=== PATIENT | male | born 1995 | race Caucasian/White ===

== ENCOUNTER 2019-05-22 08:57 | Emergency (ER) | payer MEDICAID ==
[~2019-05-22] VITALS: Ht 172.7 cm; Wt 98.9 kg
[2019-05-22 09:13] VITALS: BP_SYST 158
--- NOTE | 2019-05-22 09:20 | NUR ---
Patient to ER bed 4 to gown for evaluation. Side rails up. Report given to Rashad GOMEZ.
--- NOTE | 2019-05-22 09:25 | NUR ---
Patient came to ER due to left calf pain. Per patient he was stretching and felt sharp pain 7/10 when walking. When idle and non ambulating pain is reduced to 3/10. Patient is not presenting any signs of acute distress and sitting at bedside.
--- NOTE | 2019-05-22 10:30 | NUR ---
Patient transported to radiology via wheelchair, accompanied by rikki.
--- NOTE | 2019-05-22 10:40 | NUR ---
ER at bedside examining patient.
[2019-05-22 10:42] LABS: BILIRUBIN,URINE NEGATIVE (NEGATIVE); BLOOD, URINE NEGATIVE (NEGATIVE); CLARITY/URINE CLEAR (CLEAR); COLOR,URINE YELLOW (YELLOW); GLUCOSE,URINE NEGATIVE (NEGATIVE); KETONES,URINE NEGATIVE (NEGATIVE); LEUKOCYTE ESTERASE ,URINE NEGATIVE (NEGATIVE); NITRITE, URINE NEGATIVE (NEGATIVE); PROTEIN URINE NEGATIVE (NEGATIVE)
[2019-05-22 11:28] LABS: BASOPHILS % (AUTO) 0.7 % (0.0-2.0); CREATININE 0.81 mg/dL (0.55-1.30); EOSINOPHILS # (AUTO) 0.1 K/uL (0.0-0.4); EOSINOPHILS % (AUTO) 1.5 % (0.0-4.0); HEMATOCRIT 46.2 % (36-54); HEMOGLOBIN 15.6 g/dL (14.0-18.0); LYMPHOCYTES # (AUTO) 1.1 K/uL (1.0-5.5); LYMPHOCYTES % (AUTO) 20.4 % (20.5-51.5); MEAN CORPUSCULAR HEMOGLOBIN 30 pg (27-31); MEAN CORPUSCULAR HGB CONC 34 % (32-36); MEAN CORPUSCULAR VOLUME 88 fL (79.0-98.0); MONOCYTES # (AUTO) 0.3 K/uL (0.0-1.0); NEUTROPHILS # (AUTO) 3.9 K/uL (1.8-7.7); NEUTROPHILS % (AUTO) 71.4 % (40.0-70.0); PLATELET COUNT (AUTO) 210 K/uL (130-430); POTASSIUM 3.9 mmol/L (3.5-5.1); RED BLOOD CELL COUNT(AUTO) 5.25 MIL/uL (4.2-6.2); RED CELL DISTRIBUTION WIDTH 13.5 % (9.0-15.0); WHITE BLOOD COUNT (AUTO) 5.4 K/uL (4.8-10.8)
[2019-05-22 11:34] LABS: ALBUMIN 4.1 g/dL (3.4-4.8); TOTAL BILIRUBIN 0.3 mg/dL (0.0-1.0)
--- NOTE | 2019-05-22 11:47 | NUR ---
Patient given written and verbal discharge instructions and verbalizes understanding. ER MD discussed with patient the results and treatment provided. Patient in stable condition. ID arm band removed. Patient educated on pain management and to follow up with PMD. Pain Scale 0/10. Opportunity for questions provided and answered. Medication side effect fact sheet provided.
[2019-05-22 12:04] VITALS: BP_SYST 158
== END 2019-05-22 12:04 | disposition home or self-care (01) ==
LOC: SED 08:57
DX: M79.605 Pain in left leg (principal); J45.909 Unspecified asthma, uncomplicated
CPT/HCPCS: 36415; 80053; 81003; 85025; 93971; 99284

== ENCOUNTER 2021-12-31 15:16 | Emergency (ER) | payer MEDICAID ==
[~2021-12-31] VITALS: Ht 175.3 cm; Wt 106.6 kg
[2021-12-31 15:22] VITALS: BP_SYST 138
--- NOTE | 2021-12-31 15:25 | NUR ---
Pt to bed 1 for evaluation. Wound cleansed with NS and betadine.
--- NOTE | 2021-12-31 15:35 | NUR ---
Dr. Price at bedside to assess.
--- NOTE | 2021-12-31 15:40 | NUR ---
Pt AAO and ambulatory reporting laceration to left index finger. Pt caused laceration accidently while operating a hedgetrimmer. Pt rates pain 4/10 on pain scale.
[2021-12-31] MEDS ORDERED: BACITRACIN 1 GM OINT TP ONE (15:45)
[2021-12-31] MEDS ORDERED: DIPH-TET-PERTUS Vaccine 0.5 ML VIAL (ADACEL) I.M. ONE (15:45)
--- NOTE | 2021-12-31 16:45 | NUR ---
Patient given written and verbal discharge instructions and verbalizes understanding. Dr. Albert CISNEROS MD discussed with patient the results and treatment provided. Patient in stable condition. ID arm band removed. Patient educated on pain management and to follow up with PMD. Pain Scale 0/10. Opportunity for questions provided and answered.
== END 2021-12-31 16:45 | disposition home or self-care (01) ==
LOC: SED 15:16
DX: S61.221A Laceration with foreign body of left index finger without damage to nail, initial encounter (principal); J45.909 Unspecified asthma, uncomplicated; W31.89XA Contact with other specified machinery, initial encounter; Y93.H2 Activity, gardening and landscaping; Y92.89 Other specified places as the place of occurrence of the external cause; Y99.8 Other external cause status
CPT/HCPCS: 90715; 99283